=== PATIENT | female | born 1985 | race Caucasian/White ===

== ENCOUNTER 2017-02-19 06:51 | Day surgery (SDC) | payer BC ==
[~2017-02-19] VITALS: Ht 167.6 cm; Wt 60.8 kg
[2017-02-19] MEDS ORDERED: CEFAZOLIN 1 GM IVPB PREMIX 50 ML IV ONE (11:20)
[2017-02-19] MEDS ORDERED: DEXAMETHASONE SOD PHOSPHATE 4 MG/ML VIAL IVP ONE (11:20)
[2017-02-19] MEDS ORDERED: SUCCINYLCHOLINE CHLORIDE 20 MG/ML(QUELICIN) IVP ONE (11:20)
[2017-02-19] MEDS ORDERED: NS IRRIG SOLN 1000 ML IR ONE (11:20)
[2017-02-19] MEDS ORDERED: MIVACURIUM CHLORIDE 20 MG/10 ML VIAL (MIVACRON) INJ ONE (11:20)
[2017-02-19] MEDS ORDERED: MIDAZOLAM HCL 5 MG/5 ML VIAL IVP ONE (11:20)
[2017-02-19] MEDS ORDERED: fentaNYL CITRATE/PF 100 MCG/2 ML AMP IVP ONE (11:20)
[2017-02-19] MEDS ORDERED: SEVOFLURANE 15 MIN GAS INH ONE (11:20)
[2017-02-19] MEDS ORDERED: LR 1,000 ML IV SCH (11:52)
[2017-02-19] MEDS ORDERED: MORPHINE 4 MG/ML INJ. SYRINGE IVP PRN ×3 (12:00)
[2017-02-19] MEDS ORDERED: METOCLOPRAMIDE HCL 10 MG/2 ML VIAL IVP PRN (12:00)
[2017-02-19] MEDS ORDERED: ACETAMINOPHEN WITH CODEINE 12.5 ML UDC PO PRN (12:15)
[2017-02-19 13:16] VITALS: BP_SYST 107
== END 2017-02-19 14:00 | disposition home or self-care (01) ==
LOC: SDS 06:51 → SMU 06:51 → SDS 14:00
PROVIDERS: ATTEND Otolaryngology Plastic Surgery within the Head & Neck
DX: J35.01 Chronic tonsillitis (principal)
CPT/HCPCS: 42826; 88304; J0330; J0690; J1100; J2250; J3010